=== PATIENT | male | born 1960 | race Caucasian/White ===

== ENCOUNTER 2022-01-03 21:49 | Emergency (ER) | payer OTHER, SELFPAY ==
[2022-01-03 22:57] LABS: Hemoglobin 11.4 g/dL (13.5-17.5); Mean Corpuscular HGB CONC 32.8 g/dL (32.0-36.0); Mean Corpuscular Hemoglobin 29.4 pg (27.0-33.0); Mean Corpuscular Volume 89.7 fl (81.2-95.1); Mean Platelet Volume 10.6 fl (7.4-10.4); Platelet Count 59 10x3/uL (150-450); Red Blood Cell (RBC) Count 3.88 10x6/uL (4.32-5.72); White Blood Cell (WBC) Count 1.1 10x3/uL (3.5-10.5)
[2022-01-03 22:58] LABS: MDiff Complete? YES
[2022-01-03 23:01] LABS: ALT (SGPT) 38 U/L (8-55); AST (SGOT) 51 U/L (5-34); Albumin 3.2 g/dL (3.4-4.8); Alkaline Phosphatase 107 U/L (40-110); Anion Gap 11 mmol/L (10-20); BUN (Urea Nitrogen) 14 mg/dL (8.4-25.7); Bilirubin, Total 0.8 mg/dL (0.2-1.2); Calc. Creatinine Clearance 0 mL/min (70-130); Calcium 8.6 mg/dL (7.8-10.44); Carbon Dioxide 22 mmol/L (23-31); Chloride 110 mmol/L (98-107); Globulin 3.7 g/dL (2.4-3.5); Glucose 89 mg/dL (80-115); Potassium 3.9 mmol/L (3.5-5.1); Protein, Total 6.9 g/dL (5.8-8.1); Sodium 139 mmol/L (136-145)
[2022-01-03 23:36] LABS: Eosinophils 4 % (0-10); Lymphocytes 28 % (21-51); Monocytes 11 % (0-10); Neutrophil 55 % (42-75); Reactive Lymphocytes 2 % (0-10)
[2022-01-03 23:37] LABS: Ovalocytes SLIGHT = 2-5 cells (100X) (0-1/hpf); Platelet Morphology Comment Appears Decreased
[2022-01-03 23:41] LABS: CKMB 1.9 ng/mL (0-6.6)
[2022-01-04 00:11] LABS: Bilirubin Neg (Negative); Blood, Urine 250 (Negative); Clarity Slightly Cloudy (Clear); Glucose, Urine (Dipstick) Normal (Negative); Ketone, Urine Negative (Negative); Leukocyte Negative (Negative); Nitrite Negative (Negative); Protein, Urine (Dipstick) 15 mg/dl (Neg-Trace); Specific Gravity, Urine 1.015 (1.002-1.036); Urobilinogen Normal mg/dL (Less than 2)
[2022-01-04 00:22] LABS: Bacteria/HPF Rare-Few HPF (None Seen); RBC/HPF Greater than 50 HPF (0-3); Squamous Epithelial 0-3 HPF (0-3); WBC/HPF 0-3 HPF (0-3)
== END 2022-01-04 01:10 | disposition home or self-care (01) ==
LOC: CSHERS 21:49
DX: G45.9 Transient cerebral ischemic attack, unspecified (principal); C79.00 Secondary malignant neoplasm of unspecified kidney and renal pelvis; I10 Essential (primary) hypertension; M10.9 Gout, unspecified
CPT/HCPCS: 36415; 70450; 71045; 80053; 81003; 81015; 82553; 83605; 84484; 85025; 93005